=== PATIENT | female | born 1965 | race Caucasian/White ===

== ENCOUNTER 2023-10-19 09:13 | Day surgery (SDC) | payer BC ==
[2023-10-16 10:30] VITALS: BMI 29.2
[2023-10-19] MEDS ORDERED: BUPIVACAINE HCL/PF 0.25% (2.5MG/ML) 10 ML VIAL ONE (10:59)
[2023-10-19] MEDS ORDERED: BUPIVACAINE HCL/PF 0.5% (5MG/ML) 10 ML VIAL ONE (10:59)
[2023-10-19] MEDS ORDERED: ROCURONIUM BROMIDE 50 MG/5 ML SYRINGE ONE ×2 (11:00→12:18)
[2023-10-19] MEDS ORDERED: PROPOFOL 20 ML ONE ×2 (11:00→14:45)
[2023-10-19] MEDS ORDERED: MIDAZOLAM HCL 2 MG/2 ML SINGLE DOSE VIAL ONE (11:01)
[2023-10-19] MEDS ORDERED: DEXAMETHASONE SOD PHOSPHATE 4 MG/1 ML VIAL ONE (11:35)
[2023-10-19] MEDS ORDERED: ceFAZolin SODIUM 1 GM VIAL ONE ×2 (11:35→15:07)
[2023-10-19] MEDS ORDERED: ONDANSETRON 4 MG/2 ML VIAL ONE ×2 (11:35→16:43)
[2023-10-19] MEDS ORDERED: KETOROLAC TROMETHAMINE 30 MG/1 ML VIAL ONE (11:35)
[2023-10-19] MEDS ORDERED: SEVOFLURANE 250 ML BTL ONE (11:45)
[2023-10-19] MEDS ORDERED: PROPOFOL 40 ML ONE (11:58)
[2023-10-19] MEDS ORDERED: HYDROmorphone HCL/PF 1 MG/ML VIAL ONE (12:17)
[2023-10-19] MEDS ORDERED: SUGAMMADEX SODIUM 200 MG/2 ML VIAL ONE (14:46)
[2023-10-19] MEDS ORDERED: PROMETHAZINE HCL 25 MG/1 ML VIAL IVPB PRN (15:30)
[2023-10-19] MEDS ORDERED: oxyCODONE HCL 5 MG TABLET PO PRN ×4 (15:30→15:35)
[2023-10-19] MEDS ORDERED: ONDANSETRON 4 MG/2 ML VIAL IVPUSH PRN (15:30)
[2023-10-19] MEDS ORDERED: ONDANSETRON 4 MG/2 ML VIAL IVPB PRN (15:35)
[2023-10-19] MEDS ORDERED: FENTANYL CITRATE/PF 50 MCG/ML VIAL ONE ×2 (15:39→16:10)
[2023-10-19] MEDS ORDERED: LACTATED RINGERS SOLUTION 1,000 ML IV SCH (15:45)
[2023-10-19 17:02] VITALS: PULSE 78; RESP 16; TEMP 98
[2023-10-19] MEDS ORDERED: oxyCODONE HCL 5 MG TABLET ONE (17:02)
[2023-10-19 17:45] VITALS: BP 103/64
== END 2023-10-19 18:20 | disposition home or self-care (01) ==
LOC: FASU 09:13
PROVIDERS: ATTEND Plastic Surgery
PROC: 0HB5XZZ Excision of Chest Skin, External Approach (ICD-10-PCS; principal; 2023-10-19 11:56)
DX: N62 Hypertrophy of breast (principal)
CPT/HCPCS: 88305-TC; 94760